=== PATIENT | female | born 1930 | race Caucasian/White ===

== ENCOUNTER 2016-10-19 00:23 | Observation (INO) | payer MEDICARE ==
[2016-10-19] VITALS (20 sets, daily range): BP systolic 144–169; BP diastolic 65–110; PULSE 70–93; RESP 16–20; TEMP 97–98.4; O2SAT 93–99
[~2016-10-19] VITALS: Ht 158.8 cm; Wt 52.4 kg
[2016-10-19] MEDS ORDERED: SODIUM CHLOR 0.9% 1000 ML INJ 1,000 ML IV ONE (00:37)
[2016-10-19] MEDS ORDERED: SODIUM CHLORIDE 0.9% FLUSH 5 ML FLUSH IVF PRN (00:45)
[2016-10-19] MEDS ORDERED: ONDANSETRON HCL 4 MG/2 ML VIAL IVP ONE (00:45)
[2016-10-19 01:06] LABS: AUTOMATED NEUTROPHIL # 4.9 TH/MM3 (1.8-7.7); BASOPHIL % 0.7 % (0.0-2.0); EOSINOPHIL # 0.1 TH/MM3 (0-0.4); EOSINOPHIL % 0.9 % (0.0-4.0); HEMATOCRIT 35.8 % (35.0-46.0); HEMO FLAGS DIFF FINAL; LYMPH % 21.4 % (9.0-44.0); LYMPHOCYTE # 1.5 TH/MM3 (1.0-4.8); MEAN CELL VOLUME 96.5 FL (80.0-100.0); MEAN CORPUSCULAR HEMOGLOBIN 33.4 PG (27.0-34.0); MEAN CORPUSCULAR HGB CONC 34.6 % (32.0-36.0); MONO % 8.7 % (0.0-8.0); NEUT % 68.3 % (16.0-70.0); PLATELET COUNT 291 TH/MM3 (150-450); RED BLOOD COUNT 3.71 MIL/MM3 (4.00-5.30); RED CELL DISTRIBUTION WIDTH 11.8 % (11.6-17.2); WHITE BLOOD COUNT 7.1 TH/MM3 (4.0-11.0)
[2016-10-19 01:15] LABS: CHLORIDE 101 MEQ/L (98-107); POTASSIUM 3.7 MEQ/L (3.5-5.1); SODIUM (NA) 136 MEQ/L (136-145)
--- NOTE | 2016-10-19 01:16 | RADHPO ---
EXAM DATE/TIME: 10/19/2016 01:06 [facility] COMPARISON: No previous studies available for comparison. INDICATIONS : Chest pains. MEDICAL HISTORY : Diverticulitis. SURGICAL HISTORY : Appendectomy. Cholecystectomy. Cardiac Catherization ENCOUNTER: Initial ACUITY: 1 day PAIN SCORE: 3/10 LOCATION: Bilateral chest FINDINGS: There is slight blunting of the left costophrenic angle of undetermined chronicity. Lungs are otherwi se clear. Cardiomediastinal contour is satisfactory. CONCLUSION: Left costophrenic angle blunting, either chronic or representing minimal left pleural fluid Scott Marroquin MD on October 19, 2016 at 1:14 Board Certified Radiologist. This report was verified electronically.
[2016-10-19 01:18] LABS: ANION GAP 9 MEQ/L (5-15); BICARBONATE 25.8 MEQ/L (21.0-32.0); MAGNESIUM 2.1 MG/DL (1.5-2.5)
[2016-10-19 01:18] LABS: BLOOD, URINE TRACE (NEG); GLUCOSE,URINE NEG (NEG); KETONE, URINE 15 mg/dL (NEG); NITRITE,URINE NEG (NEG); PH, URINE 6.5 (5.0-8.5)
[2016-10-19 01:19] LABS: BLOOD UREA NITROGEN 11 MG/DL (7-18)
[2016-10-19 01:22] LABS: METHOD OF COLLECTION CLEAN CATCH; URINE COLOR YELLOW (YELLW/STRAW)
[2016-10-19 01:22] LABS: GLOMERULAR FILTRATION RATE 118 ML/MIN (>89)
[2016-10-19 01:23] LABS: MUCUS URINE OCC /lpf (OCC); SQUAMOUS EPITHELIAL CELL URINE 0-5 /hpf (0-5)
[2016-10-19 01:24] LABS: RBC, URINE 0-3 /hpf (0-3)
[2016-10-19 01:25] LABS: COMMENT (UR) CULT NOT INDICATED; CULTURE IF INDICATED CULT NOT INDICATED
[2016-10-19 01:25] LABS: CREATINE KINASE 128 U/L (26-192)
[2016-10-19] MEDS ORDERED: ZOLP10TA3 PO (01:30)
[2016-10-19] MEDS ORDERED: OMEG100010 PO (01:30)
[2016-10-19] MEDS ORDERED: ATOR10TA15 PO (01:30)
[2016-10-19] MEDS ORDERED: LEVO50TA4 PO (01:30)
[2016-10-19] MEDS ORDERED: ASPI-110 PO (01:30)
[2016-10-19] MEDS ORDERED: CALCCHW4 CHEW (01:30)
--- NOTE | 2016-10-19 01:36 | PD ---
HPI Chief Complaint: Dizziness Time Seen by Provider: 00:36 Travel History International Travel<30 days: No Contact w/Intl Traveler<30days: No Traveled to known affect area: No History of Present Illness HPI 86-year-old female arrives to the ER by EMS. The patient was playing cards at home when she became dizzy somewhat suddenly. She then went to urinate. At that time she was very lightheaded. Her assisted her. The patient vomited. EMS was activated. Zofran rate was marginally beneficial. In the ER she describes vague left upper quadrant pain starting just minutes prior to interview. At time of symptom onset and since there has been no fever or diaphoresis headache or shortness of breath. Today was a normal day for the patient. She saw her doctor Dr. Mishra and was advised to start walking. She walked about 20 minutes today. She has history of aortic regurgitation. No history of diabetes or tobaccoism. No history of coronary artery disease. No recent illness or change in medication. No vertiginous symptom offered. No urinary complaint offered. PFSH Past Medical History Arthritis: Yes Anxiety: Yes Cardiac Catheterization: Yes High Cholesterol: Yes Diabetes: No Diminished Hearing: No Diverticulitis: Yes Insomnia: Yes Immunizations Current: Yes Thyroid Disease: Yes Tetanus Vaccination: < 5 Years Influenza Vaccination: Yes ?: Not Menopausal: Yes Past Surgical History Appendectomy: Yes Cholecystectomy: Yes Gynecologic Surgery: Yes (OVARY REMOVED ) Social History Alcohol Use: Yes (SOCIALLY) Tobacco Use: No (QUIT 30-40 YRS AGO) Substance Use: No Allergies-Medications (Allergen,Severity, Reaction): Coded Allergies: No Known Allergies (Unverified , 10/19/16) Reported Meds & Prescriptions Reported Meds & Active Scripts Active Reported [place] 3 1000 mg ([place]-3 Fatty Acids) 1 Cap Cap 1 Cap PO DAILY Calcium 500/D (Calcium Carbonate-Cholecalciferol) 500-400 Mg-Unit Chew 1 Tab CHEW Aspirin 81 (Aspirin) 81 Mg Tabdr 81 Mg PO DAILY Zolpidem (Zolpidem Tartrate) 10 Mg Tab 10 Mg PO HS PRN Atorvastatin (Atorvastatin Calcium) 10 Mg Tab 10 Mg PO HS Levothyroxine (Levothyroxine Sodium) 50 Mcg Tab 50 Mcg PO DAILY Review of Systems Except as stated in HPI: all other systems reviewed are Neg General / Constitutional: No: Fever, Chills HENT: Positive: Lightheadedness Physical Exam Narrative GENERAL: 86-year-old female pleasant well-nourished well-developed SKIN: Warm and dry. HEAD: Atraumatic. Normocephalic. EYES: Pupils equal and round. No scleral icterus. No injection or drainage. ENT: No nasal bleeding or discharge. Mucous membranes pink and moist. NECK: Trachea midline. No JVD. CARDIOVASCULAR: Regular rate and rhythm. No murmur appreciated. RESPIRATORY: No accessory muscle use. Clear to auscultation. Breath sounds equal bilaterally. GASTROINTESTINAL: Abdomen soft, non-tender, nondistended. Hepatic and splenic margins not palpable. MUSCULOSKELETAL: No obvious deformities. No clubbing. No cyanosis. No edema. NEUROLOGICAL: Awake and alert. No obvious cranial nerve deficits. Motor grossly within normal limits. Normal speech. PSYCHIATRIC: Appropriate mood and affect; insight and judgment normal. Data Data Last Documented VS Vital Signs Date Time Temp Pulse Resp B/P Pulse Ox O2 Delivery O2 Flow Rate FiO2 10/19/16 02:05 74 18 167/110 94 Room Air 10/19/16 00:25 98.1 VS reviewed Orders Electrocardiogram (10/19/16 00:37) Basic Metabolic Panel (Bmp) (10/19/16 00:37) Complete Blood Count With Diff (10/19/16 00:37) Magnesium (Mg) (10/19/16 00:37) Ckmb (Isoenzyme) Profile (10/19/16 00:37) Troponin I (10/19/16 00:37) Urinalysis - C+S If Indicated (10/19/16 00:37) Chest, Single Ap (10/19/16 00:37) Ecg Monitoring (10/19/16 00:37) Iv Access Insert/Monitor (10/19/16 00:37) Oximetry (10/19/16 00:37) Ondansetron Inj (Zofran Inj) (10/19/16 00:45) Sodium Chloride 0.9% Flush (Ns Flush) (10/19/16 00:45) Sodium Chlor 0.9% 1000 Ml Inj (Ns 1000 M (10/19/16 00:37) CKMB (10/19/16 00:55) CKMB% (10/19/16 00:55) Aspirin (Aspirin) (10/19/16 01:45) Admit Order (Ed Use Only) (10/19/16 02:50) Labs Laboratory Tests Test 10/19/16 10/19/16 00:55 01:10 White Blood Count 7.1 TH/MM3 Red Blood Count 3.71 MIL/MM3 Hemoglobin 12.4 GM/DL Hematocrit 35.8 % Mean Corpuscular Volume 96.5 FL Mean Corpuscular Hemoglobin 33.4 PG Mean Corpuscular Hemoglobin 34.6 % Concent Red Cell Distribution Width 11.8 % Platelet Count 291 TH/MM3 Mean Platelet Volume 7.3 FL Neutrophils (%) (Auto) 68.3 % Lymphocytes (%) (Auto) 21.4 % Monocytes (%) (Auto) 8.7 % Eosinophils (%) (Auto) 0.9 % Basophils (%) (Auto) 0.7 % Neutrophils # (Auto) 4.9 TH/MM3 Lymphocytes # (Auto) 1.5 TH/MM3 Monocytes # (Auto) 0.6 TH/MM3 Eosinophils # (Auto) 0.1 TH/MM3 Basophils # (Auto) 0.0 TH/MM3 CBC Comment DIFF FINAL Differential Comment Sodium Level 136 MEQ/L Potassium Level 3.7 MEQ/L Chloride Level 101 MEQ/L Carbon Dioxide Level 25.8 MEQ/L Anion Gap 9 MEQ/L Blood Urea Nitrogen 11 MG/DL Creatinine 0.50 MG/DL Estimat Glomerular Filtration 118 ML/MIN Rate Random Glucose 124 MG/DL Calcium Level 8.6 MG/DL Magnesium Level 2.1 MG/DL Total Creatine Kinase 128 U/L Creatine Kinase MB 2.1 NG/ML Troponin I 0.03 NG/ML Urine Collection Type CLEAN CATCH Urine Color YELLOW Urine Turbidity CLEAR Urine pH 6.5 Urine Specific [place] 1.011 Urine Protein NEG mg/dL Urine Glucose (UA) NEG mg/dL Urine Ketones 15 mg/dL Urine Occult Blood TRACE Urine Nitrite NEG Urine Bilirubin NEG Urine Leukocyte Esterase TRACE Urine RBC 0-3 /hpf Urine WBC 3-5 /hpf Urine Squamous Epithelial 0-5 /hpf Cells Urine Mucus OCC /lpf Microscopic Urinalysis Comment CULT NOT INDICATED MDM Medical Decision Making Medical Screen Exam Complete: Yes Emergency Medical Condition: Yes Medical Record Reviewed: Yes Differential Diagnosis NSTEMI, unstable angina, coronary vasospasm, PE, PTX, aortic dissection, pericarditis, myocarditis, endocarditis, PNA Narrative Course EKG reveals a sinus rhythm with a rate of 73 there is a left axis, possible left anterior fascicular block or early left bundle branch block pattern CBC & BMP Diagram 10/19/16 00:55 Tn 0.03 UA: considered unlikely to be UTI Last 24 hours Impressions Chest X-Ray 10/19/16 0037 Signed Impressions: Service Date/Time: Wednesday, October 19, 2016 01:06 - CONCLUSION: Left costophrenic angle blunting, either chronic or representing minimal left pleural fluid Scott Marroquin MD Patient reports feeling better upon reassessment at approximately 0200 having received Zofran and NS 1L. EKG is of some concern when coupled with Tn of 0.03. Symptoms could be considered anginal equivalents. Patient notes having undergone a NM stress test one year prior with Dr. Gilbert however she is unsure of the results. Coronary disease is of concern for this patient. Admission for further evaluation. D/w Scott Maynard. Diagnosis Primary Impression: Lightheadedness Additional Impressions: Nausea & vomiting Qualified Code: R11.2 - Non-intractable vomiting with nausea, unspecified vomiting type Chest pain in adult Admitting Information Admitting Physician Requests: Observation Max Lomeli MD Oct 19, 2016 01:36
[2016-10-19 01:37] LABS: CKMB 2.1 NG/ML (0.5-3.6)
[2016-10-19] MEDS ORDERED: ASPIRIN 325 MG TAB PO ONE (01:45)
[2016-10-19] MEDS ORDERED: NALOXONE HCL 0.4 MG/ML AMP IV PRN (04:15)
[2016-10-19] MEDS ORDERED: SODIUM CHLORIDE 0.9% FLUSH 5 ML FLUSH FLUSH PRN (04:15)
[2016-10-19] MEDS ORDERED: ACETAMINOPHEN 325 MG TAB PO PRN (04:15)
[2016-10-19] MEDS ORDERED: ONDANSETRON HCL 4 MG/2 ML VIAL IVP PRN (04:15)
[2016-10-19] MEDS ORDERED: NITROGLYCERIN 0.4 MG SL 25 TABS/BTL SL PRN (04:15)
[2016-10-19] MEDS ORDERED: ZOLPIDEM TARTRATE 10 MG TAB PO PRN (08:15)
--- NOTE | 2016-10-19 08:45 | MH ---
cc: MEIR ROSEN MD DATE OF ADMISSION: 10/19/2016 CHIEF COMPLAINT Dizziness, generalized weakness. HISTORY OF PRESENT ILLNESS This is an 86-year-old female with the past medical and surgical history significant for arthritis, anxiety, history of cardiac catheterization in the past, hyperlipidemia, diverticulitis in the past, insomnia. hypothyroidism, and history of an ovary removed (does not remember which side), history of cholecystectomy, appendectomy, complaining of generalized weakness, brought by the EMS, had some dizziness. She was playing cards at home when she came dizzy somewhat suddenly. She then went to urinate and at that time she was very lightheaded. The assisted her. The patient vomited. EMS brought the patient to the ER. She got Zofran. She is also complaining of left side chest pain which is like a twinge, continuous. She denies any fever or chills or diaphoresis. Denies any headache. Denies any shortness of breath. Denies any blood in stool or black stool. Denies any frequent painful urination. Denies any blood in urine. She just feels generally weak and tired. She also has a history of aortic regurgitation. Other than that nothing significant. PAST MEDICAL/SURGICAL HISTORY As dictated above. SOCIAL HISTORY Denies smoking. She is an ex-smoker, quit 30-40 years ago. She is a social drinker. She lives at home with her . She was a lugo by occupation. FAMILY HISTORY Her father of coronary artery disease. ALLERGIES No known drug allergies. MEDICATIONS 1. [place]-3 1000 mg p.o. daily. 2. Calcium, one p.o. unknown frequency. 3. Aspirin 81 mg p.o. daily. 4. Ambien 10 mg p.o. h.s. 5. Atorvastatin 10 mg p.o. h.s. 6. Levothyroxine 50 mcg p.o. daily. REVIEW OF SYSTEMS All review of systems is negative except for generalized weakness and mild chest pain. PHYSICAL EXAMINATION GENERAL: This is an 86-year-old female sitting on the bed not in acute distress. VITAL SIGNS: Temperature 97.4, heart rate 86, respirations 18, blood pressure 160/88. O2 saturation 94% no room air. HEENT: Normocephalic, atraumatic. EOMI. PERRL. Oral mucosa moist. NECK: Supple. CARDIOVASCULAR: Regular rate and rhythm. LUNGS: Respiration is clear to auscultation bilaterally. ABDOMEN: Soft, nontender. Bowel sounds audible. EXTREMITIES: No cyanosis or clubbing. Full range of motion of all extremities. NEUROLOGIC: Awake, alert, oriented x4. No focal deficit. SKIN: Warm and dry. PSYCHIATRIC: The patient is cooperative. Mood and affect are normal. LABORATORY DATA CBC is unremarkable except for RBC count of 3.17 low, monos 8.7 high. BMP is unremarkable except for glucose 124 high. Troponin 0.03, 0.13 high. Urine examination shows ketones 15 high, trace occult blood, leukocyte esterase trace. IMAGING DATA Chest x-ray done shows left costophrenic angle blunting either chronic or representing minimal left pleural fluid. EKG DATA EKG done yesterday, 10/18/2016, shows sinus rhythm with borderline first-degree AV block, poor R-wave progression in V1, V2, V3, V4, III, and AVF. Old anterior inferior infarction unable to rule out. Nonspecific ST-T wave changes. EKG done on 10/19/2016 shows sinus rhythm, rate of 70, progression of R-wave in V1, V2, V3, and V4. Nonspecific ST-T wave changes. ASSESSMENT AND PLAN 1. This is an 86-year-old female who came to the ER diagnosed with chest pain, rule out acute coronary syndrome. Troponin-I is high at 0.13. The patient is on aspirin. I will start the patient on Lovenox 1 mg subcutaneous twice a day. Cardiology is consulted. Further recommendation per cardiology. 2. History of hyperlipidemia. Continue with Lipitor 10 mg p.o. daily. 3. Hypothyroidism. Continue levothyroxine 50 mcg p.o. daily. 4. History of insomnia. Continue with Ambien 10 mg p.o. h.s. 5. Dizziness, exact etiology not known. We will monitor blood pressure. 6. Hypertension. Blood pressure is high. I will keep the patient on clonidine 0.1 mg every 6 hours p.r.n. if BP above 170/90. 7. DVT prophylaxis with Lovenox. 8. GI prophylaxis with Protonix 40 mg p.o. daily. 9. We are going to manage the patient on a daily basis and make recommendation on a daily basis. MD HIMANSHU Waters 8:15 AM 8:28 AM
[2016-10-19] MEDS ORDERED: HEPARIN SODIUM - SQ 10,000 UNITS/ML VIAL SQ SCH (09:00)
[2016-10-19] MEDS ORDERED: NON-FORMULARY DRUG (Omega-3 Fatty Acids (Omega 3 1000 mg) 1 CAP) PO SCH (09:00)
[2016-10-19] MEDS: ASPIRIN EC 81 MG TABEC PO SCH (09:12)
[2016-10-19] MEDS: LEVOTHYROXINE SODIUM 50 MCG TAB PO SCH (09:12)
[2016-10-19] MEDS: ENOXAPARIN SODIUM 60 MG/0.6 ML SYRINGE SQ SCH ×2 (09:13→20:53)
[2016-10-19] MEDS: SODIUM CHLORIDE 0.9% FLUSH 5 ML FLUSH FLUSH SCH ×2 (09:18→20:54)
--- NOTE | 2016-10-19 10:11 | RADHPO ---
EXAM DATE/TIME: 10/19/2016 09:38 [facility] COMPARISON: CHEST SINGLE AP, October 19, 2016, 1:06. INDICATIONS : Intermittent shortness of breath and mild anterior chest pain. RADIATION DOSE: 6.32 CTDIvol (mGy) MEDICAL HISTORY : Diverticulitis. SURGICAL HISTORY : Appendectomy. Cholecystectomy. ENCOUNTER: Initial ACUITY: 4 - 6 months PAIN SCALE: 1/10 LOCATION: chest TECHNIQUE: Volumetric scanning of the chest was performed. Using automated exposure control and adjustment of t he mA and/or kV according to patient size, radiation dose was kept as low as reasonably achievable to obtain optimal diagnostic quality images. FINDINGS: LUNGS: There is no consolidation or pneumothorax. No concerning pulmonary nodule is visualized. PLEURAE: There is no pleural thickening or pleural effusion. MEDIASTINUM: The heart and great vessels demonstrate no acute abnormality. There is no mediastinal or hilar lymph adenopathy. Moderate coronary artery disease and ossification is within the ureter itself. AXILLAE: Within normal limits. No lymphadenopathy. MUSCULOSKELETAL: Within normal limits for patient age. MISCELLANEOUS: The visualized upper abdominal organs demonstrate no acute abnormality. CONCLUSION: No acute disease. No abnormality to account for patient's symptoms. Arlin Arteaga MD on October 19, 2016 at 10:03 Board Certified Radiologist. This report was verified electronically.
--- NOTE | 2016-10-19 19:47 | EKG ---
Date Performed: 10/19/2016 Time Performed: 04:30:10 PTAGE: 86 years EKG: Sinus rhythm Possible left atrial abnormality Left anterior fascicular block Poor R wave progression - cannot rul e out anteroseptal infarct Left ventricular hypertrophy Abnormal ECG Compared to prior tracing no sig nificant change DOCTOR: Su Bacon Interpretating Date/Time 10/19/2016 19:47:06
--- NOTE | 2016-10-19 19:57 | EKG ---
Date Performed: 10/19/2016 Time Performed: 00:48:42 PTAGE: 86 years EKG: Sinus rhythm with borderline 1st degree A-V block Possible left atrial abnormality Possible left anterior fascicu lar block Poor R wave progression - cannot rule out anteroseptal infarct Left ventricular hypertrophy Lateral ST changes are probably due to ventricular hypertrophy Abnormal ECG NO PREVIOUS TRACING DOCTOR: Su Bacon Interpretating Date/Time 10/19/2016 19:55:39
[2016-10-19] MEDS: ATORVASTATIN 10 MG TAB PO SCH (20:53)
[2016-10-20] VITALS (15 sets, daily range): BP systolic 113–140; BP diastolic 53–83; PULSE 57–84; RESP 18; TEMP 98.1–98.6; O2SAT 94–97
[2016-10-20] MEDS: LEVOTHYROXINE SODIUM 50 MCG TAB PO SCH (05:35)
[2016-10-20 07:18] LABS: ALKALINE PHOSPHATASE 71 U/L (45-117); ALT (GPT) 17 U/L (10-53); ANION GAP 9 MEQ/L (5-15); AST (GOT) 12 U/L (15-37); BICARBONATE 25.2 MEQ/L (21.0-32.0); BLOOD UREA NITROGEN 11 MG/DL (7-18); CHLORIDE 102 MEQ/L (98-107); GLOMERULAR FILTRATION RATE 105 ML/MIN (>89); POTASSIUM 3.9 MEQ/L (3.5-5.1); SODIUM (NA) 136 MEQ/L (136-145); TOTAL BILIRUBIN ADULT 0.5 MG/DL (0.2-1.0)
[2016-10-20 07:36] LABS: AUTOMATED NEUTROPHIL # 3.3 TH/MM3 (1.8-7.7); BASOPHIL # 0.1 TH/MM3 (0-0.2); EOSINOPHIL # 0.1 TH/MM3 (0-0.4); EOSINOPHIL % 2.4 % (0.0-4.0); HEMATOCRIT 33.7 % (35.0-46.0); LYMPH % 34.5 % (9.0-44.0); LYMPHOCYTE # 2.1 TH/MM3 (1.0-4.8); MEAN CELL VOLUME 95.1 FL (80.0-100.0); MEAN CORPUSCULAR HEMOGLOBIN 34.2 PG (27.0-34.0); MONO % 9.2 % (0.0-8.0); NEUT % 52.9 % (16.0-70.0); PLATELET COUNT 253 TH/MM3 (150-450); RED BLOOD COUNT 3.55 MIL/MM3 (4.00-5.30); RED CELL DISTRIBUTION WIDTH 12.2 % (11.6-17.2); WHITE BLOOD COUNT 6.2 TH/MM3 (4.0-11.0)
[2016-10-20 07:38] LABS: HEMO FLAGS AUTO DIFF
[2016-10-20] MEDS ORDERED: ASPIRIN 325 MG TAB PO SCH (09:00)
[2016-10-20] MEDS: ENOXAPARIN SODIUM 60 MG/0.6 ML SYRINGE SQ SCH ×2 (09:27→20:32)
[2016-10-20] MEDS: ASPIRIN EC 81 MG TABEC PO SCH (09:27)
[2016-10-20] MEDS: SODIUM CHLORIDE 0.9% FLUSH 5 ML FLUSH FLUSH SCH ×2 (09:28→20:33)
[2016-10-20 10:05] LABS: ACANTHOCYTES OCC (NORMAL); PLATELET ESTIMATE SMEAR NORMAL (NORMAL); PLATELET MORPHOLOGY NORMAL (NORMAL); SCAN/DIFF AUTO DIFF CONFIRMED
--- NOTE | 2016-10-20 14:34 | PD.CARD.PN ---
Subjective Subjective Remarks No chest pain Discussed cath again pt now not sure may decide to do adenosine nuclear Objective Medications Current Medications Medications (Trade) Dose Ordered Sig/Amber Route Start Time Stop Time Status Last Admin (Nitrostat Sl) 0.4 mg Q5M PRN SL 10/19/16 04:15 (NS Flush) 2 ml UNSCH PRN FLUSH 10/19/16 04:15 (NS Flush) 2 ml BID FLUSH 10/19/16 09:00 10/20/16 09:28 (Tylenol) 650 mg Q4H PRN PO 10/19/16 04:15 (Zofran Inj) 4 mg Q6H PRN IVP 10/19/16 04:15 (Narcan Inj) 0.4 mg UNSCH PRN IV 10/19/16 04:15 (Ecotrin Ec) 81 mg DAILY PO 10/19/16 09:00 10/20/16 09:27 (Lipitor) 10 mg HS PO 10/19/16 21:00 10/19/16 20:53 (Synthroid) 50 mcg DAILY@06 PO 10/19/16 09:00 10/20/16 05:35 (Ambien) 10 mg HS PRN PO 10/19/16 08:15 (Lovenox Inj) 50 mg Q12HR SQ 10/19/16 09:00 Future Hold 10/20/16 09:27 Vital Signs / I&O Vital Signs Date Time Temp Pulse Resp B/P Pulse Ox O2 Delivery O2 Flow Rate FiO2 10/20/16 07:00 57 10/20/16 07:00 98.3 66 18 113/53 94 10/20/16 07:00 94 Room Air 10/20/16 06:00 68 10/20/16 05:00 64 10/20/16 04:00 62 10/20/16 04:00 Room Air 10/20/16 04:00 98.6 74 18 122/77 96 10/20/16 03:00 64 10/20/16 02:00 68 10/20/16 01:00 73 10/20/16 00:00 Room Air 10/20/16 00:00 65 10/20/16 00:00 98.2 82 18 135/76 96 10/19/16 23:00 70 10/19/16 22:00 72 10/19/16 21:00 92 10/19/16 20:03 98 21 10/19/16 20:00 Room Air 10/19/16 20:00 81 10/19/16 20:00 98.4 82 18 150/87 96 10/19/16 19:00 77 10/19/16 18:21 97.9 82 18 144/78 98 I/O 10/19/16 10/19/16 10/19/16 10/20/16 10/20/16 10/20/16 07:00 15:00 23:00 07:00 15:00 23:00 Intake Total 1120 ml 480 ml 300 ml Output Total 700 ml Balance 420 ml 480 ml 300 ml Intake Oral 120 ml 480 ml 300 ml IV Total 1000 ml Output Urine Total 700 ml # Voids 2 2 # Bowel Movements 0 0 Physical Exam CONSTITUTIONAL: A well-developed, well-nourished patient in no apparent distress. EYES: Conjunctiva normal. Sclera nonicteric. Eyelids normal. No xanthelasma. HEENT: Oral mucosa normal without pallor or cyanosis. NECK: JVD less than or equal to 5 cm of water. RESPIRATORY: Breathing is unlabored without accessory muscle use. Normal breath sounds. No wheezes, rales or rubs present. CARDIOVASCULAR: Normal point of maximal impulse. No cardiac thrill present. Regular rate and rhythm. No murmurs, gallops, rubs or clicks present. PERIPHERAL CIRCULATION: No cyanosis, clubbing, edema or varicosities present. GASTROINTESTINAL: Normal bowel sounds. Nontender without rigidity or guarding. No masses present. No hepatomegaly. Liver is nontender to palpation and spleen is nonpalpable. . MUSCULOSKELETAL: No kyphosis or scoliosis present. The patient is not ambulated. Able to undergo rehabilitation. SKIN: Skin turgor is normal. No rashes. NEUROLOGICAL: Grossly oriented to person, place and time. Normal mood and appropriate affect. Laboratory Laboratory Tests Test 10/20/16 10/20/16 04:53 04:55 Sodium Level 136 MEQ/L Potassium Level 3.9 MEQ/L Chloride Level 102 MEQ/L Carbon Dioxide Level 25.2 MEQ/L Anion Gap 9 MEQ/L Blood Urea Nitrogen 11 MG/DL Creatinine 0.55 MG/DL Estimat Glomerular Filtration 105 ML/MIN Rate Random Glucose 79 MG/DL Calcium Level 8.6 MG/DL Total Bilirubin 0.5 MG/DL Aspartate Amino Transf 12 U/L (AST/SGOT) Alanine Aminotransferase 17 U/L (ALT/SGPT) Alkaline Phosphatase 71 U/L Total Protein 6.0 GM/DL Albumin 3.2 GM/DL White Blood Count 6.2 TH/MM3 Red Blood Count 3.55 MIL/MM3 Hemoglobin 12.1 GM/DL Hematocrit 33.7 % Mean Corpuscular Volume 95.1 FL Mean Corpuscular Hemoglobin 34.2 PG Mean Corpuscular Hemoglobin 36.0 % Concent Red Cell Distribution Width 12.2 % Platelet Count 253 TH/MM3 Mean Platelet Volume 8.2 FL Neutrophils (%) (Auto) 52.9 % Lymphocytes (%) (Auto) 34.5 % Monocytes (%) (Auto) 9.2 % Eosinophils (%) (Auto) 2.4 % Basophils (%) (Auto) 1.0 % Neutrophils # (Auto) 3.3 TH/MM3 Lymphocytes # (Auto) 2.1 TH/MM3 Monocytes # (Auto) 0.6 TH/MM3 Eosinophils # (Auto) 0.1 TH/MM3 Basophils # (Auto) 0.1 TH/MM3 CBC Comment AUTO DIFF Differential Comment AUTO DIFF CONFIRMED Platelet Estimate NORMAL Platelet Morphology Comment NORMAL Acanthocytes OCC Assessment and Plan Assessment and Plan Reviewed risks of cath will proceed tomorrow if she is agreeable. risks of renal failure etc. If not proceed with nuclear Jon Gilbert MD Oct 20, 2016 14:34
--- NOTE | 2016-10-20 16:34 | HHI.PR ---
Subjective History of Present Illness Patient feel better no chest getting cardiac catherization tomorrow. d/w family at bed side. Review of Systems Constitutional Constitutional Remarks All ROS Negative. Vitals/Results Intake & Output 10/19/16 10/19/16 10/20/16 15:00 23:00 07:00 Intake Total 480 ml 300 ml Balance 480 ml 300 ml Intake Oral 480 ml 300 ml # Voids 2 # Bowel Movements 0 Vital Signs Vital Signs Date Time Temp Pulse Resp B/P Pulse Ox O2 Delivery O2 Flow Rate FiO2 10/20/16 07:00 57 10/20/16 07:00 98.3 66 18 113/53 94 10/20/16 07:00 94 Room Air 10/20/16 06:00 68 10/20/16 05:00 64 10/20/16 04:00 62 10/20/16 04:00 Room Air 10/20/16 04:00 98.6 74 18 122/77 96 10/20/16 03:00 64 10/20/16 02:00 68 10/20/16 01:00 73 10/20/16 00:00 Room Air 10/20/16 00:00 65 10/20/16 00:00 98.2 82 18 135/76 96 10/19/16 23:00 70 10/19/16 22:00 72 10/19/16 21:00 92 10/19/16 20:03 98 21 10/19/16 20:00 Room Air 10/19/16 20:00 81 10/19/16 20:00 98.4 82 18 150/87 96 10/19/16 19:00 77 10/19/16 18:21 97.9 82 18 144/78 98 CBC/BMP: 10/20/16 0455 10/20/16 0453 Lab Results Laboratory Tests Test 10/20/16 10/20/16 04:53 04:55 Sodium Level 136 MEQ/L Potassium Level 3.9 MEQ/L Chloride Level 102 MEQ/L Carbon Dioxide Level 25.2 MEQ/L Anion Gap 9 MEQ/L Blood Urea Nitrogen 11 MG/DL Creatinine 0.55 MG/DL Estimat Glomerular Filtration 105 ML/MIN Rate Random Glucose 79 MG/DL Calcium Level 8.6 MG/DL Total Bilirubin 0.5 MG/DL Aspartate Amino Transf 12 U/L (AST/SGOT) Alanine Aminotransferase 17 U/L (ALT/SGPT) Alkaline Phosphatase 71 U/L Total Protein 6.0 GM/DL Albumin 3.2 GM/DL White Blood Count 6.2 TH/MM3 Red Blood Count 3.55 MIL/MM3 Hemoglobin 12.1 GM/DL Hematocrit 33.7 % Mean Corpuscular Volume 95.1 FL Mean Corpuscular Hemoglobin 34.2 PG Mean Corpuscular Hemoglobin 36.0 % Concent Red Cell Distribution Width 12.2 % Platelet Count 253 TH/MM3 Mean Platelet Volume 8.2 FL Neutrophils (%) (Auto) 52.9 % Lymphocytes (%) (Auto) 34.5 % Monocytes (%) (Auto) 9.2 % Eosinophils (%) (Auto) 2.4 % Basophils (%) (Auto) 1.0 % Neutrophils # (Auto) 3.3 TH/MM3 Lymphocytes # (Auto) 2.1 TH/MM3 Monocytes # (Auto) 0.6 TH/MM3 Eosinophils # (Auto) 0.1 TH/MM3 Basophils # (Auto) 0.1 TH/MM3 CBC Comment AUTO DIFF Differential Comment AUTO DIFF CONFIRMED Platelet Estimate NORMAL Platelet Morphology Comment NORMAL Acanthocytes OCC Physical Exam General General Appearance: No Acute Distress, Comfortable Eyes Eye Exam: Pupils Equal, Pupils Reactive, Sclera White, Extraocular Movement Intact Ears & Nose Ears & Nose Exam: Nasal Mucosa [place] Throat Throat Exam: Oral Mucosa [place] & Moist, Oral Pharynx Normal Neck Neck Exam: Neck Supple, Trachea Midline Pulmonary Resp Exam: Clear Bilaterally, Breath Sounds Equal, No Distress Cardiology CV Exam: Regular, Normal Sinus Rhythm Gastrointestinal/Abdomen GI Exam: Soft, Non-Tender, Bowel Sounds Present Musculoskeletal MS Exam: Normal Tone Integumentary Skin Exam: Warm, Dry Extremeties Extremities Exam: No Edema Neurologic Neuro Exam: Alert, Awake, Oriented, Speech Clear, Moving All Extremities, [employer]ployment Equal, No Focal Deficits Psychiatric Psych Exam: Appropriate Responses VTE Prophylaxis VTE Prophylaxis Meds: Lovenox PUD Prophylasis PUD Prophylaxis: Protonix Assessment/Plan Assessment/Plan ASSESSMENT AND PLAN 1. This is an 86-year-old female who came to the ER diagnosed with chest pain, rule out acute coronary syndrome. Troponin-I is high at 0.13. The patient is on aspirin. patient on Lovenox 1 mg subcutaneous twice a day. Cardiology input noted... getting Cardiac cth tomorrow. Further recommendation per cardiology. 2. History of hyperlipidemia. Continue with Lipitor 10 mg p.o. daily. 3. Hypothyroidism. Continue levothyroxine 50 mcg p.o. daily. 4. History of insomnia. Continue with Ambien 10 mg p.o. h.s. 5. Dizziness, exact etiology not known. We will monitor blood pressure. 6. Hypertension. better I will keep the patient on clonidine 0.1 mg every 6 hours p.r.n. if BP above 170/90. 7. DVT prophylaxis with Lovenox. 8. GI prophylaxis with Protonix 40 mg p.o. daily. 9. We are going to manage the patient on a daily basis and make recommendation on a daily basis. Discussed Condition with: Patient Ankit Harper MD Oct 20, 2016 16:34
[2016-10-20] MEDS: SODIUM CHLOR 0.9% 1000 ML INJ 1,000 ML IV SCH (17:07)
[2016-10-20] MEDS: ATORVASTATIN 10 MG TAB PO SCH (20:32)
--- NOTE | 2016-10-20 21:28 | EKG ---
Date Performed: 10/19/2016 Time Performed: 09:53:54 PTAGE: 86 years EKG: Sinus rhythm with borderline 1st degree A-V block Possible left atrial abnormality Left anterior fascicular block Poor R wave progression - cannot rule out anteroseptal infarct Left ventricular hypertrophy Abnormal ECG PREVIOUS TRACING : 10/19/2016 04.30 DOCTOR: Eric De Jesus Interpretating Date/Time 10/20/2016 21:14:09
[2016-10-21] VITALS (13 sets, daily range): BP systolic 130–153; BP diastolic 75–86; PULSE 65–91; RESP 18; TEMP 98.1–98.5; O2SAT 94–96
[2016-10-21] MEDS: LEVOTHYROXINE SODIUM 50 MCG TAB PO SCH (05:22)
[2016-10-21] MEDS: SODIUM CHLOR 0.9% 1000 ML INJ 1,000 ML IV SCH (05:23)
--- NOTE | 2016-10-21 08:01 | HHI.PR ---
Subjective History of Present Illness Patient feel better no chest pain getting cardiac catherization today. Review of Systems Constitutional Constitutional Remarks All ROS Negative. Vitals/Results Intake & Output 10/20/16 10/20/16 10/21/16 15:00 23:00 07:00 Intake Total 240 ml 20 ml Balance 240 ml 20 ml Intake Oral 240 ml 20 ml # Voids 1 1 # Bowel Movements 0 Vital Signs Vital Signs Date Time Temp Pulse Resp B/P Pulse Ox O2 Delivery O2 Flow Rate FiO2 10/21/16 05:30 98.5 69 18 130/77 96 10/20/16 23:04 98.4 76 18 140/83 97 10/20/16 22:40 98.4 76 18 140/83 97 10/20/16 20:18 96 21 10/20/16 20:00 82 10/20/16 20:00 98.4 82 18 124/76 95 10/20/16 20:00 95 Room Air 10/20/16 18:00 84 10/20/16 15:00 98.1 71 18 125/74 95 10/20/16 11:00 98.3 66 18 113/53 94 CBC/BMP: 10/20/16 0455 10/20/16 0453 Physical Exam General General Appearance: No Acute Distress, Comfortable Eyes Eye Exam: Pupils Equal, Pupils Reactive, Sclera White, Extraocular Movement Intact Ears & Nose Ears & Nose Exam: Nasal Mucosa [place] Throat Throat Exam: Oral Mucosa [place] & Moist, Oral Pharynx Normal Neck Neck Exam: Neck Supple, Trachea Midline Pulmonary Resp Exam: Clear Bilaterally, Breath Sounds Equal, No Distress Cardiology CV Exam: Regular, Normal Sinus Rhythm Gastrointestinal/Abdomen GI Exam: Soft, Non-Tender, Bowel Sounds Present Musculoskeletal MS Exam: Normal Tone Integumentary Skin Exam: Warm, Dry Extremeties Extremities Exam: No Edema Neurologic Neuro Exam: Alert, Awake, Oriented, Speech Clear, Moving All Extremities, Manager Gyn Equal, No Focal Deficits Psychiatric Psych Exam: Appropriate Responses VTE Prophylaxis VTE Prophylaxis Meds: Lovenox PUD Prophylasis PUD Prophylaxis: Protonix Assessment/Plan Assessment/Plan ASSESSMENT AND PLAN 1. This is an 86-year-old female who came to the ER diagnosed with chest pain, rule out acute coronary syndrome. Troponin-I is high at 0.13. The patient is on aspirin. patient on Lovenox 1 mg subcutaneous twice a day. Cardiology input noted... getting Cardiac cath today. Further recommendation per cardiology. 2. History of hyperlipidemia. Continue with Lipitor 10 mg p.o. daily. 3. Hypothyroidism. Continue levothyroxine 50 mcg p.o. daily. 4. History of insomnia. Continue with Ambien 10 mg p.o. h.s. 5. Dizziness, exact etiology not known. We will monitor blood pressure. 6. Hypertension. better I will keep the patient on clonidine 0.1 mg every 6 hours p.r.n. if BP above 170/90. 7. DVT prophylaxis with Lovenox. 8. GI prophylaxis with Protonix 40 mg p.o. daily. 9. We are going to manage the patient on a daily basis and make recommendation on a daily basis. Discussed Condition with: Patient Ankit Harper MD Oct 21, 2016 08:01
[2016-10-21] MEDS: ASPIRIN EC 81 MG TABEC PO SCH (09:34)
[2016-10-21] MEDS: SODIUM CHLORIDE 0.9% FLUSH 5 ML FLUSH FLUSH SCH (09:34)
[2016-10-21] MEDS ORDERED: HEPARIN-NS/PF INJ 500 ML ONE (12:37)
[2016-10-21] MEDS ORDERED: MIDAZOLAM HCL 2 MG/2 ML VIAL ONE (12:38)
[2016-10-21] MEDS ORDERED: MISC INFORMATION XX ONE (14:45)
[2016-10-21] MEDS ORDERED: SODIUM CHLOR 0.9% 1000 ML INJ 1,000 ML IV SCH (15:00)
[2016-10-21] MEDS: ATORVASTATIN 10 MG TAB PO SCH (20:13)
--- NOTE | 2016-10-25 15:03 | MB ---
cc: MARK SANTOS M.D. DATE OF CONSULTATION 10/19/[address] Ankit Harper for asking us see this very pleasant 86-year-old white female who presents with a history of arthritis, anxiety. She presented with generalized weakness and dizziness. Dr. Pham says that she also has some chest pain. He bumped her troponin. In the past she had a nuclear stress test that was mildly positive. Because of the bump in troponin, chest pain and dizziness, it is recommended she have a heart catheterization. Troponin increased ten-fold from 0.03 to 0.13 and 0.12. CPK was normal. Hemoglobin was 12.4, platelet count 291. UA was negative. PAST MEDICAL HISTORY 1. Positive for cardiac murmur. 2. Precordial pain. 3. Hyperlipidemia. 4. Hypothyroidism. PAST SURGICAL HISTORY Oophorectomy in 1973. FAMILY HISTORY Father with ASHD, aortic aneurysm. Heart disease in the mother, at age 43. Children had sarcoidosis. SOCIAL HISTORY Nonsmoker. Moderate alcohol. No drugs. Quit smoking about 15 years ago. PHYSICAL EXAMINATION VITAL SIGNS: Her pulse was 76, blood pressure 168/98, respirations 18. EYES: No xanthelasma. MOUTH: No cyanosis or pallor. NECK: No JVD. HEART: She has two heart sounds, no murmurs. CHEST: Clear. ABDOMEN: Soft. No hepatosplenomegaly. EXTREMITIES: Legs reveal no evidence of edema. NEUROLOGICAL: Exam grossly intact. PSYCHIATRIC: No suicidal ideation. LABORATORY TESTS White count 7.1, hemoglobin 12.4, platelet count 291,000. Troponin 0.03, 0.13 and 0.12. Glucose 124, sodium of 136, potassium 3.7. ASSESSMENT AND PLAN Since the patient previously had chest pain with an abnormal nuclear stress test albeit at low risk, given the elevated troponin and further episode of dizziness and possible chest pain as recorded in Dr. Pham's note, would plan to transfer the patient to the main hospital, proceed with diagnostic heart catheterization. The risks of stent placement, PTCA, bypass surgery, heart catheterization, foreseen and unforeseen complications were reviewed. The patient fully appeared to understand and accepts the risks. Humayun A. Jamidar MD, FRCP,[facility]/SSB /1:58 PM /2:51 PM
--- NOTE | 2016-10-26 07:31 | MA ---
cc: JON GILBERT M.D. DATE 10/21/2016 PROCEDURE PERFORMED Cardiac catheterization. INDICATIONS FOR CATHETERIZATION Unstable angina with elevated troponins, non-STEMI. CONSENT Full informed consent was obtained prior to the procedures. The risks of , bleeding, myocardial infarction, stroke, foreseen and unforeseen complications were reviewed. The patient fully appeared to understand the risks. PROCEDURAL STATEMENTS The patient was draped and prepped in the usual manner. The right femoral artery was entered using a micropuncture technique. Via a 4-[place] sheath, left and right coronary catheters were used to intubate the left and right coronaries. Pigtail catheter was used to intubate the left ventricle. Multiple angiographic views were carried out. At the end of the catheterization procedure, all catheters and sheaths were removed. Manual pressure was applied until good hemostasis achieved and the patient returned to his room in stable condition. FINDINGS: I. HEMODYNAMICS: Aortic pressure was 143/55 with a mean of 93. The left ventricular pressure was 166 with a left ventricular end-diastolic pressure of 16. There was no evidence of significant gradient on pullback across the LV outflow tract and aortic valve. II. LEFT VENTRICULOGRAM: The overall left ventricular ejection fraction was 60%. There was no evidence of significant mitral regurgitation nor mural thrombus. III. CORONARIES: The left main was large and free of significant disease. The left anterior descending artery was a large artery with a medium-sized first diagonal branch. The circumflex artery was a large artery which ended in a large first obtuse marginal branch. The right coronary artery is a large, dominant vessel which was very tortuous and had a large magaña's crook. The posterior descending artery was a large vessel. The posterolateral branch was small. There was no evidence of significant disease throughout these vessels. CONCLUSION 1. Normal LV function, ejection fraction 60%. 2. No evidence of significant coronary disease. PLAN Medical management. The cause of elevated troponin and symptoms is uncertain at this time. Jon Gilbert MD, FRCP,[facility] /1:40 PM /7:15 AM
== END 2016-10-21 20:19 | disposition home or self-care (01) ==
LOC: PHED 00:23 → PHEDA 02:53 → PH3A 03:53 → HCIS 18:00
PROVIDERS: ADMIT Family Medicine; ATTEND Family Medicine
DX: R42 Dizziness and giddiness (principal); R11.2 Nausea with vomiting, unspecified; R07.9 Chest pain, unspecified; R10.12 Left upper quadrant pain; M19.90 Unspecified osteoarthritis, unspecified site; E78.00 Pure hypercholesterolemia, unspecified; K57.92 Diverticulitis of intestine, part unspecified, without perforation or abscess without bleeding; G47.00 Insomnia, unspecified; Z79.899 Other long term (current) drug therapy; R53.1 Weakness; E78.5 Hyperlipidemia, unspecified; E03.9 Hypothyroidism, unspecified; Z79.82 Long term (current) use of aspirin; I10 Essential (primary) hypertension; R94.31 Abnormal electrocardiogram [ECG] [EKG]
CPT/HCPCS: 71010; 71250; 80048; 80053; 81001; 82550; 82552; 83735; 84484; 85025; 93005; 93458; 96361; 96374; 99285; C1769; C1893; G0378; J1644; J1650; J2250; J2405; J3010; J7030